=== PATIENT | male | born 1995 | race Caucasian/White ===

== ENCOUNTER 2016-11-10 18:52 | Inpatient (IN) | payer OTHER ==
--- NOTE | ~2016-11-10 | DS ---
Unit #: [id number] #: [id number] Patient: ESPERANZA FRITZ [id number] [facility] [address] [place] [address] [id number] MR#: [id number] NAME: ESPERANZA FRITZ ROOM: [facility] Age: 21 Sex: M Admission Date: 11/10/2016 : 1995 Discharge Date: 11/12/2016 Attending Physician: Cliff Castillo M.D. Primary Care Physician: Primary Care Physician No DISCHARGE SUMMARY REASON FOR ADMISSION Suicidal ideation. DIAGNOSTIC STUDIES LABORATORY RESULTS: Unremarkable. HOSPITAL COURSE The patient was admitted to inpatient unit on 11/10/2016 and discharged on 11/12/2016. The patient was treated on the inpatient unit with medication management, psychotherapy, and structured milieu. The patient did not require any medication. The patient showed improvement in his mood and affect. Subsequently, the patient was discharged with a plan to follow up in outpatient program. DISCHARGE MEDICATIONS None. DIAGNOSES Psychiatric: 1. Mood disorder, not otherwise specified, F32.9. 2. Rule out major depressive disorder. Secondary diagnosis: Deferred. Medical diagnosis: None. Stressors: Psychosocial stressors. DISCHARGE INSTRUCTIONS The patient is to follow up in outpatient clinic as per community mental health social worker. CONDITION ON DISCHARGE The patient was pleasant and cooperative. Denied any psychotic symptom or any suicidal ideation. PROGNOSIS Guarded. DIET AND ACTIVITY As tolerated. Dictated by... Cliff Castillo M.D. Unit #: [id number] #: [id number] Patient: ESPERANZA FRITZ JWC/modl TD: 11/12/2016 22:28 JOB #: [id number] DISCHARGE SUMMARY X Cliff Castillo MD X DISCHARGE SUMMARY
--- NOTE | ~2016-11-10 | PN ---
Unit #: [id number] #: [id number] Patient: ESPERANZA FRITZ [id number] [facility] [address] [place] [address] [id number] MR#: [id number] NAME: ESPERANZA FRITZ ROOM: [facility] Age: 21 Sex: M Admission Date: 11/10/2016 : 1995 Attending Physician: Cliff Castillo M.D. Admitting Physician: Cliff Castillo M.D. Primary Care Physician: Primary Care Physician Lucille CAMARILLO NOTES DATE OF SERVICE 11/11/2016 DISCUSSION Esperanza Fritz is a 21-year-old male seen on 11/11/2016. The patient reports no suicidal ideation. Flat, sad, dysphoric. The patient's vital signs: 97.7, 89, 154/97. Height: 6 feet 3 inches. Complete Review of Systems: Unremarkable. MENTAL STATUS EXAMINATION General Appearance: The patient dressed casually. Tall, well built. Attention span, concentration: Fair. Oriented in place and person. Mood and affect: Sad, dysphoric. Speech: Regular rate. Thought process: Goal-directed. Association: The patient denied any thoughts of harming self or others but guarded. Recent and remote memory: Poor. Insight and judgment: Poor. DIAGNOSES Mood disorder not otherwise specified. ASSESSMENT/PLAN Advised to continue with current medication and therapeutic protocol. We will monitor response to medication and make further adjustment of medication. Dictated by... Claudia Zaragoza/isidoro TD: 11/13/2016 07:28 JOB #: [id number] Unit #: [id number] #: [id number] Patient: ESPERANZA FRITZ PROGRESS NOTES X Cliff Castillo MD PROGRESS NOTE
--- NOTE | ~2016-11-10 | HP ---
Unit #: [id number] #: [id number] Patient: ESPERANZA FRITZ [id number] [place] [address] [id number] I MR#: [id number] NAME: ESPERANZA FRITZ ROOM: [facility] Age: 21 Sex: M Admission Date: 11/10/2016 : 1995 Attending Physician: Cliff Castillo M.D. Admitting Physician: Cliff Castillo M.D. Primary Care Physician: Primary Care Physician No HISTORY AND PHYSICAL HISTORY OF PRESENT ILLNESS Esperanza is a 21 year old admitted to [address] [place] [address] after verbalizing wanting to hurt himself. PAST MEDICAL HISTORY Nothing significant. PAST SURGICAL HISTORY Nothing reported. ALLERGIES Ibuprofen. SOCIAL HISTORY He denies cigarettes, alcohol, and illicit drug use. FAMILY HISTORY Medically noncontributory. REVIEW OF SYSTEMS CONSTITUTIONAL: No fever or chills. HEENT: Denies any sore throat, ear pain or runny nose. CARDIOVASCULAR: Denies chest pain, irregular heart rhythm or palpitations. CHEST: Denies shortness of breath or cough. No hemoptysis. GASTROINTESTINAL: Denies nausea, vomiting, diarrhea or chronic constipation. ENDOCRINE: Denies history of increased thirst or urination. No recent significant weight loss or gain. GENITOURINARY: Denies dysuria, frequency, or hematuria. SKIN: Denies any rashes. HEMATOLOGIC: Denies history of increased bleeding or bruising. MUSCULOSKELETAL: Denies any hot, swollen joints. No generalized muscle pain. NEUROLOGIC: Denies problems with vision or speech. No frequent, severe headaches. No numbness, tingling or weakness in any extremities. Denies loss of bladder or bowel control. CURRENT MEDICATIONS 1. Trazodone 75 mg q.h.s. p.r.n. 2. Milk of Magnesia p.r.n. 3. Maalox p.r.n. 4. Tylenol p.r.n. Unit #: [id number] #: [id number] Patient: ESPERANZA FRITZ PHYSICAL EXAMINATION GENERAL: Alert, well nourished. No apparent distress. VITAL SIGNS: Blood pressure 134/88, heart rate 92, respirations 16, and temperature 98.6. WEIGHT: 220. HEIGHT: 6 feet 3 inches. SKIN: Warm and dry without rash or lesion. HEENT: Normocephalic. TMs not viewed. Oral and nasal passages clear. Conjunctivae clear. PERRLA. EOMs intact. NECK: Supple without lymphadenopathy or thyromegaly. HEART: Regular rate and rhythm without murmur. LUNGS: Clear. ABDOMEN: Soft, nontender. : Not done. EXTREMITIES: No evidence of cyanosis, clubbing or edema. Moves all without focal deficit. NEUROLOGICAL: Grossly within normal limits. Cranial Nerves: II: Visual dougherty are intact. III, IV AND : Extraocular movements are intact. Pupils are equal, round and reactive to light. V: Facial sensation is grossly normal. VII: Facial movements and expression are normal. VIII: Auditory acuity grossly intact. IX, X: Uvula is midline. Phonation is normal. XI: Patient shrugs shoulders and turns head normally. XII: Tongue protrudes in the midline. Sensory and Motor Function: Sensory and motor sensation is grossly normal. Motor: moves all extremities well. Coordination: Gait is normal. Deep Tendon Reflexes: Intact. IMPRESSION Psychiatric admission. RECOMMENDATIONS PSYCHIATRIC: Per psychiatrist. MEDICAL: I see no contraindication to participate in this facility's activities. MEDICAL PROGNOSIS Good. MEDICAL CONDITION Stable. Dictated by... Beverly RichardsonASosa. for Claudia Mary/isidoro TD: 11/11/2016 11:13 JOB #: [id number] Unit #: [id number] #: [id number] Patient: ESPERANZA FRITZ HISTORY AND PHYSICAL X Lainey Elam HISTORY AND PHYSICAL
--- NOTE | ~2016-11-10 | PA ---
Unit #: [id number] #: [id number] Patient: ESPERANZA FRITZ [id number] [facility] [address] [place] [address] [id number] MR#: [id number] NAME: ESPERANZA FRITZ ROOM: [facility] Age: 21 Sex: M Admission Date: 11/10/2016 : 1995 Date of Assessment: Attending Physician: Cliff Castillo M.D. Admitting Physician: Cliff Castillo M.D. Primary Care Physician: Primary Care Physician No PSYCHIATRIC ASSESSMENT INFORMANT Patient's reliability, fair; chart reliability, good. CHIEF COMPLAINT Depression. HISTORY OF PRESENT ILLNESS Esperanza Fritz is a 21-year-old male, seen on the unit of [address] [place] [address]. The patient reported intentionally ingested handful Tylenol in a suicide attempt. The patient reported that he wanted to go to sleep and never wake up. The patient reported that he and his are trying to get custody of younger brother. The patient reported to the clinical writer a different story. The patient denied any current suicidal or homicidal ideation, but admitted due to the above-mentioned complaint. The patient reports that he has bachelor's degree and working on getting more education. The patient denied any homicidal ideation. Denied any use of drugs or alcohol. Needed inpatient admission at this time for psychiatric stabilization. PAST PSYCHIATRIC HISTORY Unremarkable for any history of any previous treatment. FAMILY HISTORY AND SOCIAL HISTORY The patient reports that he lives with his . No known history of any abuse. MEDICAL HISTORY Unremarkable for any chronic medical condition except for recent overdose of Tylenol. ALLERGIES No known drug allergies. SUBSTANCE ABUSE HISTORY None. REVIEW OF SYSTEMS HEENT: Eyes clear. Ears, nose, mouth, and throat clear. CARDIOVASCULAR: Unremarkable. RESPIRATORY: Unremarkable. GI: Unremarkable. : Unremarkable. SKIN: Unremarkable. Unit #: [id number] #: [id number] Patient: ESPERANZA FRITZ LYMPH NODE: Unremarkable. NEUROLOGIC: Unremarkable. ENDOCRINE: Unremarkable. HEMATOLOGIC: Unremarkable. ALLERGIC/IMMUNOLOGIC: Unremarkable. MUSCULOSKELETAL: Muscle strength and tone, no atrophy or abnormal movement. Gait normal. MENTAL STATUS EXAMINATION CONSTITUTIONAL: Measurement of vital signs; temperature 97.7, heart rate 89, respirations 19, blood pressure 154/97, height 6 feet 3 inches, weight 220 pounds. GENERAL APPEARANCE: The patient dressed casually. The patient did not show any facial deformity. MUSCULOSKELETAL: Please see above. PSYCHIATRIC EXAMINATION Description of speech; regular rate, normal volume, normal articulation. Description of thought process, goal directed. Description of association, intact. Description of abnormal psychotic thinking; the patient denied any hallucination or delusions, but reported suicidal ideation earlier, but denied at this time. Denied any homicidal ideation. Description of patient's judgment, concerning. Everyday activity, poor. Social situation, poor. Concerning psychiatric condition, poor. Complete mental status examination; oriented in time, place, and person. Recent and remote memory, fair. Attention span and concentration, fair. Language, able to name object, repeat phrases. Fund of knowledge, aware of current event, passive vocabulary intact. Mood and affect, sad and dysphoric. Insight and judgment, fair to poor. ASSETS AND LIABILITIES Assets; the patient is articulate, able to take care of his ADL. Liability; history of depression. ADMITTING DIAGNOSES Psychiatric: 1. Mood disorder, not otherwise specified. 2. Rule out major depressive disorder, recurrent. Secondary diagnosis: Deferred. Medical diagnosis: None. Stressors: Psychosocial stressors. PSYCHIATRIC PLAN, TREATMENT GOAL, AND DISCHARGE PLAN 1. Advised to admit the patient on the inpatient unit. Provide safe, supportive, and structured environment. 2. SC1 precaution. 3. Labs; CBC, CMP, UA, UDS. 4. The patient will attend all the programing, obtain collateral information. Treatment goal to attain euthymic mood, gain insight into his problem, and learn coping skills. If needed, consider medication. DISCHARGE PLAN Plan to stabilize the patient and consider followup in outpatient program. ESTIMATED LENGTH OF STAY Unit #: [id number] #: [id number] Patient: ESPERANZA FRITZ 3 to 5 days. Dictated by... Claudia Zaragoza/redd TD: 11/12/2016 03:02 JOB #: [id number] PSYCHIATRIC ASSESSMENT X Cliff Castillo MD PSYCHIATRIC ASSESSMENT
[2016-11-11 09:57] LABS: THYROID STIMULATING HORMONE 2.41 uIU/ml (0.34-5.60)
[2016-11-11 10:06] LABS: FREE THYROXIN (T4) 0.77 ng/dL (0.58-1.64)
== END 2016-11-12 12:20 | disposition home or self-care (01) | DRG 885 ==
LOC: P2L 18:52
PROVIDERS: Psychiatry & Neurology Psychiatry
DX: F39 Unspecified mood [affective] disorder (principal); F33.9 Major depressive disorder, recurrent, unspecified; Z88.6 Allergy status to analgesic agent
CPT/HCPCS: 84439; 84443